=== PATIENT | male | born 1945 | race Caucasian/White ===

== ENCOUNTER 2017-02-09 12:42 | Emergency (ER) | payer OTHER, BC ==
[~2017-02-09] VITALS: Ht 177.8 cm; Wt 104.5 kg
[~2017-02-09 12:42] MED LIST: ADULT LOW DOSE81 M1 PO; ALTACE1.25 MG PO; CALCIUM 600 +1 EA12 PO; CENTRUM SILVER1 EAC3 PO; CINNAMON500 MG PO; FIBER1 GM PO; FLOMAX0.4 MG PO; GLUCOPHAGE XR,500 MG PO; GLUCOTROL XL5 MG PO; GOLYTELY SOLU4000 ML PO; LANTUS 3 M100 UNITS1 SC; OMEGA 3-6-9 11200 MG PO; PERCOCET 5/31 TABLET PO; PRESERVISION T1 EACH PO; STOOL SOFTENER100 MG PO; SUPER B COMP1 TABLET PO; VICTOZA 2-0.6 MG/0.1 SC; VITAMIN D31000 UNIT PO; ZOFRAN4 MG PO
[2017-02-09 14:05] LABS: EOSINOPHIL (%) 0.3 % (0-5); HEMATOCRIT 42.3 % (38.0-50.0); IMMATURE GRANULOCYTE (%) 0.6 % (0.0-0.7); IMMATURE GRANULOCYTE COUNT 0.1 K/uL; LYMPHOCYTE COUNT 2.1 K/uL (1.0-2.8); MCV 94.4 FL (86-99); MEAN PLAT.VOLUME 9.8 uM^3 (9.0-12.4); MONOCYTE (%) 9.3 % (3-12); MONOCYTE COUNT 1.5 K/uL (0-0.8); NEUTROPHIL (%) 76.2 % (45-76); PLATELET COUNT 216 K/uL (156-360); RBC DIS.WIDTH-CV 12.6 % (11.8-14.6); RBC DIS.WIDTH-SD 43.9 % (39-53); RED BLOOD COUNT 4.48 M/uL (4.00-5.50); WHITE BLOOD COUNT 15.8 K/uL (4.1-10.2)
[2017-02-09 14:16] LABS: CHLORIDE 102 mEq/L (99-109); POTASSIUM 4.4 mEq/L (3.7-5.4); SODIUM 132 mEq/L (136-147)
[2017-02-09 14:17] LABS: MAGNESIUM 2.1 mg/dL (1.3-2.7)
[2017-02-09 14:18] LABS: GLUCOSE 195 mg/dL (70-99)
[2017-02-09 14:19] LABS: ANION GAP 7 MEQ/L (2-14)
[2017-02-09 14:20] LABS: TOTAL BILIRUBIN 0.7 mg/dL (0.0-1.0)
[2017-02-09 14:22] LABS: ALKALINE PHOSPHATASE 93 IU/L (3-129); GFR ESTIMATE (CALCULATED) > 59 mL/min/
[2017-02-09 14:23] LABS: UREA NITROGEN (BUN) 15 mg/dL (9-23)
[2017-02-09 14:31] LABS: TROP-I INTERPRETATION NEGATIVE; TROPONIN-I < 0.01 ng/mL (0.0-0.30)
[2017-02-09 15:14] LABS: ADD MIUA? YES; BILIRUBIN NEGATIVE; BLOOD NEGATIVE; COLOR AMBER ((YELLOW)); GLUCOSE (STRIP) 50; KETONES NEGATIVE; LEUKOCYTES TRACE; NITRITE NEGATIVE; PROTEIN (STRIP) 30; SPECIFIC GRAVITY 1.019 (1.000-1.030)
[2017-02-09 15:19] LABS: BACTERIA RARE /HPF; EPITHELIAL CELLS RARE /HPF; MUCUS TRACE /LPF; RED BLOOD CELLS 0-5 /HPF (0-5); UCUL ADDED? YES
[2017-02-09] MEDS ORDERED: CIPRO500 MG PO (16:34)
[2017-02-09] MEDS ORDERED: FLEXERIL10 MG PO (16:36)
[2017-02-09] MEDS ORDERED: MOTRIN800 MG PO (16:36)
[2017-02-09 17:39] VITALS: BP 108/55
== END 2017-02-09 17:41 | disposition home or self-care (01) ==
LOC: EME 12:42
PROVIDERS: Emergency Medicine
DX: N39.0 Urinary tract infection, site not specified (principal); M54.2 Cervicalgia; K59.00 Constipation, unspecified; M47.892 Other spondylosis, cervical region; M25.78 Osteophyte, vertebrae; E11.9 Type 2 diabetes mellitus without complications; Z79.4 Long term (current) use of insulin; Z85.828 Personal history of other malignant neoplasm of skin; Z90.49 Acquired absence of other specified parts of digestive tract; Z79.82 Long term (current) use of aspirin
CPT/HCPCS: 71020; 72040; 80048; 80053; 81003; 83735; 84484; 85025; 87086 GA; 87502; 93005; 99281; 99285; J7030